=== PATIENT | female | born 1995 | race Caucasian/White ===

== ENCOUNTER 2021-05-01 02:04 | Emergency (ER) | payer OTHER ==
[2021-05-01 03:00] LABS: HEMOGLOBIN 13.5 gm/dl (12.3-15.3); RED BLOOD COUNT 4.39 M/UL (4.00-5.10); WHITE BLOOD COUNT 10.7 K/UL (4.5-11.0)
[2021-05-01 03:24] LABS: BUN/CREATININE RATIO 32 (0-10)
[2021-05-01] MEDS ORDERED: ZOFRAN ODT 4 MG4 MG PO (06:16)
[2021-05-01] MEDS ORDERED: BENTYL 20MG TAB20 MG PO (06:16)
== END 2021-05-01 06:35 | disposition home or self-care (01) ==
LOC: ER1 02:04
PROVIDERS: Physician Assistant
DX: R10.84 Generalized abdominal pain (principal); R11.2 Nausea with vomiting, unspecified; R10.817 Generalized abdominal tenderness; R42 Dizziness and giddiness; Z88.0 Allergy status to penicillin; Z88.8 Allergy status to other drugs, medicaments and biological substances
CPT/HCPCS: 80053; 81001; 82009; 82150; 82550; 82553; 82800; 83605; 83690; 84484; 85025; 87086; 96374; 96375; 99284; J1885; J2405; J7030; Q9967